=== PATIENT | female | born 1940 | race Caucasian/White ===

== ENCOUNTER 2016-09-09 10:12 | Outpatient (CLI) | payer MEDICARE, BC ==
[2016-09-09 10:59] LABS: #Basophils 0.1 thou/uL (0.0-0.2); #Eosinphils 0.1 thou/uL (0.0-0.7); #Lymphocytes 1.6 thou/uL (1.20-3.40); #Monocytes 0.4 thou/uL (0.11-0.59); #Neutrophils 3.4 thou/uL (1.40-6.50); %Basophils 1.1 % (0.0-1.0); %Monocytes 7.4 % (0.0-10.0); Hematocrit 43.8 % (36.0-47.0); Mean Platelet Volume 5.8 fL (7.4-10.4); Red Blood Cell (RBC) Count 4.98 mill/uL (4.20-5.40); White Blood Cell (WBC) Count 5.5 thou/uL (4.8-10.8)
[2016-09-09 11:42] LABS: ALT (SGPT) 8 U/L (0-55); AST (SGOT) 16 U/L (5-34); Alkaline Phosphatase 48 U/L (40-150); Anion Gap 14 mmol/L (10-20); BUN (Urea Nitrogen) 20 mg/dL (9.8-20.1); Bilirubin, Total 0.6 mg/dL (0.2-1.2); Calc. Creatinine Clearance 0 mL/min (70-130); Calcium 9.5 mg/dL (7.8-10.44); Carbon Dioxide 26 mmol/L (23-31); Chloride 104 mmol/L (98-107); Estimated GFR-MDRD 83; Globulin 3.1 g/dL (2.4-3.5); LDL Cholesterol, Calculated 103 mg/dL; Protein, Total 7.4 g/dL (5.8-8.1)
== END 2016-09-09 10:13 | disposition home or self-care (01) ==
LOC: HPCALD 10:12
PROVIDERS: ATTEND Family Medicine
DX: I10 Essential (primary) hypertension (principal)
CPT/HCPCS: 36415; 80053; 80061; 84443; 85025

== ENCOUNTER 2017-10-06 11:46 | Outpatient (CLI) | payer MEDICARE, BC ==
--- NOTE | 2017-10-06 21:10 | RAD ---
LUMBAR SPINE THREE VIEWS: 10/06/17 Comparison is made with the 02/14/10 study. No fracture was noted. There is increased disc space narrowing at L2-L3, L3-L4 and L5-S1 compared to before. Anterior osteophytes are present at several levels and are slightly larger than they were bef ore. A small sclerotic area in the vertebral body of L3 was present in retrospect and has not really changed. There is curvature of the lumbar spine convexed left which has advanced slightly in the inte rval. There are a few vague right upper quadrant calcifications that could be in vessels or even gall stones. Other studies would be needed to investigate this. The SI joints were unremarkable. IMPRESSION: 1. Worsening degenerative disc disease since 2009. 2. Mild scoliosis, but more pronounced than previously. POS: HOME
== END 2017-10-06 11:47 | disposition home or self-care (01) ==
LOC: BURRAD 11:46
PROVIDERS: ATTEND Family Medicine
DX: K62.89 Other specified diseases of anus and rectum (principal); M51.36 Other intervertebral disc degeneration, lumbar region; M41.9 Scoliosis, unspecified
CPT/HCPCS: 72100

== ENCOUNTER 2020-10-16 09:47 | Outpatient (CLI) | payer MEDICARE, BC | END 2020-10-16 09:48 | disposition home or self-care (01) | LOC: BURRAD 09:47 | PROVIDERS: ATTEND Registered Nurse Community Health | DX: S91.302A Unspecified open wound, left foot, initial encounter (principal) ==

== ENCOUNTER 2021-06-17 14:38 | Outpatient (CLI) | payer MEDICARE, BC | END 2021-06-17 14:39 | disposition home or self-care (01) | LOC: BURRAD 14:38 | PROVIDERS: ATTEND Family Medicine | DX: M25.511 Pain in right shoulder (principal) ==

== ENCOUNTER 2022-07-31 18:17 | Emergency (ER) | payer MEDICARE, BC ==
[2022-07-31] MEDS ORDERED: Lidocaine 1% w/Epinephrine 1:100K 50 ML VIAL ONE (18:58)
[2022-07-31] MEDS ORDERED: Bacitracin 1 PK ONE (19:19)
[2022-07-31] MEDS ORDERED: Acetaminophen/Codeine 30-300mg Tablet ONE (19:41)
== END 2022-07-31 19:40 | disposition home or self-care (01) ==
LOC: BURERS 18:17
DX: S01.81XA Laceration without foreign body of other part of head, initial encounter (principal); I10 Essential (primary) hypertension; W17.89XA Other fall from one level to another, initial encounter
CPT/HCPCS: 12011; 70450; 70486; 72125